=== PATIENT | male | born 1935 ===

== ENCOUNTER 2017-08-27 11:05 | Outpatient (RCR) | payer MEDICARE ==
[2017-08-27] MEDS ORDERED: COLLAGENASE OINTMENT 30 GM TUBE ONE (15:32)
[2017-08-27] MEDS ORDERED: LIDOCAINE VISC 2% SOLN 15 ML UDC ONE (15:32)
== END 2017-08-28 ==
LOC: WCC 11:05
PROVIDERS: ATTEND Internal Medicine Infectious Disease
DX: S51.002A Unspecified open wound of left elbow, initial encounter (principal); W06.XXXA Fall from bed, initial encounter